=== PATIENT | female | born 1990 | race Asian ===

== ENCOUNTER → 2016-11-14 | Outpatient (CLI) | payer OTHER | END | disposition home or self-care (01) | LOC: C.PAPS 11:39 | PROVIDERS: ATTEND Obstetrics & Gynecology | DX: Z12.4 Encounter for screening for malignant neoplasm of cervix (principal); E28.2 Polycystic ovarian syndrome ==

== ENCOUNTER → 2016-11-16 | Outpatient (CLI) | payer OTHER ==
[2016-11-16 09:40] LABS: BASO % 1.8 %; BASO ABS # 0.09 K/uL (0-0.2); EOS % 6.2 %; HEMATOCRIT 36.4 % (37-47); IG% 0.2 %; LYMPH % 37.7 %; LYMPH ABS # 1.88 K/uL (1.2-3.4); MEAN CELL VOLUME 69.6 fL (80-100); MEAN CORPUSCULAR HEMOGLOBIN 21.6 pg (25-34); MEAN PLATELET VOLUME 10.2 fL (7.4-10.4); MONO % 9.8 %; NEUT % 44.3 %; PLATELET COUNT 447 K/uL (130-400); RED BLOOD COUNT 5.23 M/uL (4.2-5.4); WHITE BLOOD COUNT 4.99 K/uL (4.8-10.8)
[2016-11-16 10:03] LABS: CALCULATED INSULIN SENSITIVITY 0.324; GLUCOSE LOG 1.9868; INSULIN FASTING 12.5 mU/L (3-25)
[2016-11-16 10:04] LABS: PROLACTIN 29.24 ng/mL
[2016-11-16 10:06] LABS: THYROID STIMULATING HORMONE 11.8 uIu/ml (0.300-4.500)
[2016-11-16 10:31] LABS: ANISOCYTOSIS PRESENT; COMPLETE YES; HYPOCHROMIA PRESENT; MICROCYTOSIS PRESENT; OVALOCYTES 1+
[2016-11-19 16:36] LABS: HCT 37.1 % (35.0-45.0); HEMOGLOBIN A2 2.1 % (1.8-3.5); HGB 11.1 g/dL (11.7-15.5); MCH 21.3 pg (27.0-33.0); MCV 71.2 FL (80.0-100.0); RBC 5.21 Mill/uL (3.80-5.10); RDW 26.7 % (11.0-15.0); TESTOSTERONE,TOTAL 32 ng/dL (2-45)
== END | disposition home or self-care (01) ==
LOC: C.LAB1850 07:34
PROVIDERS: ATTEND Obstetrics & Gynecology
DX: Z31.41 Encounter for fertility testing (principal); E28.2 Polycystic ovarian syndrome; D64.9 Anemia, unspecified